=== PATIENT | female | born 1955 | race Caucasian/White ===

== ENCOUNTER 2022-10-07 11:17 | Outpatient (REF) | payer OTHER, SELFPAY ==
[2022-10-08 02:09] LABS: Abs Immature Grans 0.03 10^3/uL (0.0-0.06); Absolute Basophil Count 0.04 10^3/uL (0.0-0.2); Absolute Lymphocyte Count 1.65 10^3/uL (1.2-3.4); Absolute Monocyte Count 0.72 10^3/uL (0.1-0.8); Absolute Neutrophil Count 5.59 10^3/uL (1.2-6.7); Basophils % 0.5; Eosinophils % 1.2; HCT 44.5 % (36.0-46.0); HGB 14.4 g/dL (11.2-15.7); Immature Grans % 0.4; Lymphocytes % 20.3; MCH 28.4 pg (27.0-33.0); MCHC 32.4 % (32.0-36.0); MCV 88 fL (80-95); MPV 11.2 fL (8.0-11.0); Monocytes % 8.9; Neutrophils % 68.7; Platelet Count 334 10^3/uL (130-400); RBC 5.07 10^6/uL (3.93-5.22); RDW 13.7 % (11.7-14.6); RDW-SD 43.8 fL; WBC 8.13 10^3/uL (4.4-10.8)
[2022-10-08 11:32] LABS: ALT 30 U/L (14-59); AST 22 U/L (15-37); Albumin 4.3 g/dL (3.4-5.0); Alkaline Phosphatase 97 U/L (46-116); Anion Gap 7.8 mmol/L (3-11); BUN 10 mg/dL (7-18); Bilirubin, Total 0.4 mg/dL (0.2-1.0); CO2 28.2 mmol/L (21.0-32.0); CREATININE 0.7 mg/dL (0.55-1.02); Calculated LDL 165 mg/dL (<100); Chloride 102 mmol/L (98-107); Cholesterol 266 mg/dL (<200); Estimated GFR 93.56 (mL/min/1.73m2); Glucose 114 mg/dL (74-106); HDL Cholesterol 74 mg/dL (40-60); Potassium 4.4 mmol/L (3.5-5.1); Sodium 138 mmol/L (136-145); TSH (W/Ref FT4) 2.13 uIU/mL (0.36-3.74); Total Protein 7.4 g/dL (6.4-8.2); Triglyceride 138 mg/dL (<150)
[2022-10-08 12:03] LABS: Calcium 9.7 mg/dL (8.5-10.1)
== END 2022-10-07 11:18 | disposition home or self-care (01) ==
LOC: NCHCN 11:17
PROVIDERS: Visit Provider Nurse Practitioner Family
DX: R53.83 Other fatigue (principal); R06.09 Other forms of dyspnea; R01.1 Cardiac murmur, unspecified; R79.89 Other specified abnormal findings of blood chemistry
CPT/HCPCS: 80053; 80061; 84443; 85025

== ENCOUNTER 2022-11-26 01:17 | Outpatient (CLI) | payer OTHER, SELFPAY ==
--- NOTE | 2022-11-26 07:30 | DI.US_ITS ---
APPROVED REPORT EXAM: Comprehensive 2D, Doppler, and color-flow Echocardiogram Other Information Study Quality: Adequate Conclusion Normal left ventricular wall thickness and chamber size. Ejection fraction is 65%. Wall motion is n ormal Normal right ventricular size and systolic function The left atrium is mildly dilated. Right atrial size is normal Aortic valve is sclerotic. There is mild to moderate aortic stenosis. Peak gradient is 41, mean is 25. Calculated aortic valve area is 1.16 cm??. There is trivial aortic regurgitation Mitral annular calcification with trace mitral regurgitation Normal tricuspid valve with trace regurgitation. Estimated right ventricular systolic pressure is 26 mmHg Wall motion Left Ventricle The left ventricle is normal size. The left ventricular systolic function is normal. The left ventric ular ejection fraction is within the normal range. There is normal left ventricular wall thickness. T here is normal LV segmental wall motion. There is no ventricular septal defect visualized. LVEF is 65 %. Right Ventricle The right ventricle is normal size. Right ventricular systolic function is grossly normal. The RVSP i s 25.7 mmHg. Atria Left atrium is mildly dilated. The right atrium size is normal. The interatrial septum is intact with no evidence for an atrial septal defect. Aortic Valve Aortic valve is calcified. Aortic valve is probably trileaflet. Mild to moderate aortic stenosis. Pea k aortic valve gradient is 41.0 mmHg. Highest mean aortic valve gradient is 24.9 mmHg. Calculated MANJINDER by the continuity equation is 1.16 cm2. Trivial aortic regurgitation. Mitral Valve Mild mitral annular calcification. No evidence of mitral valve stenosis. Trace mitral regurgitation. Tricuspid Valve The tricuspid valve is normal in structure. There is no tricuspid valve stenosis. Trace tricuspid reg urgitation. Pulmonic Valve The pulmonary valve is normal in structure. There is no pulmonic valvular stenosis. There is no pulmo francisco valvular regurgitation. Great Vessels The aortic root is normal in size. The ascending aorta is normal in size. Aortic arch is not well vis ualized. IVC is normal in size and collapses >50% with inspiration. Pericardium There is no pericardial effusion. 2D Dimensions IVSD d PLAX 0.66 cm F: 0.6-1.0 LV Vol A2C d MOD 73.8 mL LVPW d PLAX 0.66 cm F: 0.6 - 1.0 LV Vol A4C d MOD 90.8 mL LVID d PLAX 3.33 cm F: 3.8 - 5.2 LA vol/ BSA A4C s A-L 37.1 mL/m2 LVDs 2.10 cm F: 2.2 - 3.5 LA Area A4C s MOD 19.98 cm2 Ao Root d 2.93 cm F: 2.7 - 3.3 LV EF A4C MOD 66.3 % Ao Asc Diam d 2.91 cm F: 2.3 - 3.1 LV EF A2C MOD 64.5 % LV EF Teichholz 66.4 % LV EF Biplane MOD 66.1 % LVEF (Harris's) 66.14 % F: 54 - 74 SV 55.62 mL LV Volume 66.82 mL F: 46 - 106 SV Index 32.76 mL/m2 LV Volume Index 39.30 mL/m2 F: 29 - 61 LV Vol Biplane MOD 84.1 mL FS 35.65 % M-Mode TAPSE 1.71 cm (M/F) >1.7 LV Diastology MV E' medial 0.131 (>0.07 m/s) E/A Ratio 0.7 LV E/e MED 6.25 (<14) MV E Vmax 0.82 (0.4-1.3 m/s) MV E' lateral 0.085 (>0.1 m/s) MV A Vmax 1.25 (0.4-1.3 m/s) LV E/e LAT 9.65 (<14) MV E/A Ratio 0.65 MV E/E' medial 6.27 MV E/E' lateral 9.66 Aortic Valve LVOT Area 3.30 cm2 AoV Area Vmax 1.16 cm2 LVOT Vmax 1.12 m/s AoV Area/ BSA (Vmax) 0.68 cm2/m2 LVOT Mean Phani. 0.68 m/s MANJINDER Mean Phani. 0.94 cm2 LVOT Peak Grad 5.1 mmHg MANJINDER Mean Phani. Index 0.56 cm2/m2 LVOT Mean Grad 2.3 mmHg LVOT VTI 0.235 m LVOT Diam s 2.00 cm AoV Vmax 3.20 m/s Velocity Ratio 0.35 AoV Mean Phani. 2.39 m/s AoV Peak Grad 41.0 mmHg LVOT SV 77.47 mL AoV Mean Grad 24.9 mmHg AoV VTI 0.737 m AoV Area VTI 1.05 cm2 AoV Area/ BSA (VTI) 0.62 cm/m2 Mitral Valve MV DT 223 (160-240 msec) MV PHT 65 msec MV Area PHT 3.41 cm2 Pulmonary Valve PV Vmax 1.03 (0.5-1.5 m/s) RVOT Peak Gr. 1.63 mmHg PV Peak Grad 4.2 mmHg RVOT Mean Gr. 0.95 mmHg PV Mean Grad 2.0 mmHg RVOT VTI 0.131 m PV VTI 0.182 m RVOT Vmax 0.64 m/s Tricuspid Valve TR Peak Grad 22.7 mmHg TR Vmax 2.38 m/s RA Pressure 3.00 mmHg RVSP (TR) 25.7 mmHg
== END 2022-11-26 01:37 ==
LOC: DI 01:17
PROVIDERS: Visit Provider Nurse Practitioner Family
DX: R01.1 Cardiac murmur, unspecified (principal)
CPT/HCPCS: 93306

== ENCOUNTER 2023-01-01 12:56 | Outpatient (CLI) | payer OTHER, SELFPAY ==
--- NOTE | 2023-01-01 12:45 | RT.EKG_ITS ---
APPROVED REPORT Exam: Resting ECG Reason for Exam: cardiac evaluation Patient Location: O HR:80 bpm ECG Measurements Heart Rate 80 AXIS ID 179 P 49 QRSd 95 QRS -9 QT 394 T 6 QTc 455 Conclusion Sinus rhythm...normal P axis, V-rate 50- 99 Normal Electrocardiogram
== END 2023-01-01 12:57 | disposition home or self-care (01) ==
LOC: DI.CARD 12:57
PROVIDERS: PCP Nurse Practitioner Family; Visit Provider Internal Medicine Cardiovascular Disease
DX: R01.1 Cardiac murmur, unspecified (principal); R06.02 Shortness of breath
CPT/HCPCS: 93010

== ENCOUNTER → 2023-01-01 13:42 | Outpatient (BNVA) | payer OTHER, SELFPAY | PROVIDERS: PCP Nurse Practitioner Family; Referring Provider Nurse Practitioner Family; Visit Provider Internal Medicine Cardiovascular Disease | DX: I35.0 Nonrheumatic aortic (valve) stenosis (principal); E78.5 Hyperlipidemia, unspecified | CPT/HCPCS: 93005; 99203 ==

== ENCOUNTER 2023-01-06 10:49 | Outpatient (REF) | payer OTHER, SELFPAY ==
[2023-01-06 19:11] LABS: ALT 36 U/L (14-59); AST 31 U/L (15-37); Albumin 4.1 g/dL (3.4-5.0); Alkaline Phosphatase 93 U/L (46-116); Anion Gap 6.8 mmol/L (3-11); BUN 12 mg/dL (7-18); Bilirubin, Total 0.9 mg/dL (0.2-1.0); CO2 29.2 mmol/L (21.0-32.0); CREATININE 0.7 mg/dL (0.55-1.02); Calcium 9.6 mg/dL (8.5-10.1); Calculated LDL 76 mg/dL (<100); Chloride 106 mmol/L (98-107); Cholesterol 165 mg/dL (<200); Estimated GFR 93.56 (mL/min/1.73m2); Glucose 140 mg/dL (74-106); HDL Cholesterol 71 mg/dL (40-60); Potassium 4.5 mmol/L (3.5-5.1); Sodium 142 mmol/L (136-145); Total Protein 7.6 g/dL (6.4-8.2); Triglyceride 91 mg/dL (<150)
== END 2023-01-06 10:50 | disposition home or self-care (01) ==
LOC: NCHCN 10:49
PROVIDERS: PCP Nurse Practitioner Family; Visit Provider Nurse Practitioner Family
DX: E78.5 Hyperlipidemia, unspecified; R01.1 Cardiac murmur, unspecified; R53.83 Other fatigue
CPT/HCPCS: 80053; 80061

== ENCOUNTER 2023-05-28 16:23 | Outpatient (REF) | payer OTHER, SELFPAY ==
[2023-05-28 19:34] LABS: ALT 35 U/L (14-59); AST 29 U/L (15-37); Alkaline Phosphatase 104 U/L (46-116); Anion Gap 11.1 mmol/L (3-11); BUN 11 mg/dL (7-18); Bilirubin, Total 0.7 mg/dL (0.2-1.0); CO2 25.9 mmol/L (21.0-32.0); CREATININE 0.8 mg/dL (0.55-1.02); Calcium 9.7 mg/dL (8.5-10.1); Calculated LDL 58 mg/dL (<100); Chloride 102 mmol/L (98-107); Cholesterol 151 mg/dL (<200); Estimated GFR 79.71 (mL/min/1.73m2); Glucose 259 mg/dL (74-106); HDL Cholesterol 65 mg/dL (40-60); Potassium 4.3 mmol/L (3.5-5.1); Sodium 139 mmol/L (136-145); Total Protein 7.2 g/dL (6.4-8.2); Triglyceride 140 mg/dL (<150)
== END 2023-05-28 16:24 | disposition home or self-care (01) ==
LOC: NCHCN 16:23
PROVIDERS: PCP Nurse Practitioner Family; Visit Provider Nurse Practitioner Family
DX: I10 Essential (primary) hypertension (principal); E78.5 Hyperlipidemia, unspecified
CPT/HCPCS: 80053; 80061

== ENCOUNTER 2023-06-03 13:09 | Outpatient (REF) | payer OTHER, SELFPAY ==
[2023-06-03 14:38] LABS: Hemoglobin A1C 6.9 % (<5.7)
== END 2023-06-03 13:10 | disposition home or self-care (01) ==
LOC: NCHCN 13:09
PROVIDERS: PCP Nurse Practitioner Family; Visit Provider Nurse Practitioner Family
DX: R73.09 Other abnormal glucose (principal)
CPT/HCPCS: 83036

== ENCOUNTER → 2023-06-15 02:20 | Outpatient (CLI) | payer OTHER, SELFPAY ==
--- NOTE | 2023-06-15 | DI.US_ITS ---
APPROVED REPORT EXAM: Stress Echocardiogram Stress Nurse: Darcie Garcia RN Ordering Provider: CARLOS CHERY, Contact Number: [phone] HR: 88 bpm BP: 150/84 mmHg Rhythm: NSR ICD: Other chest pain R07.89 Indications: Chest tightness, elevated blood pressure. Medical History Medical History: Aortic stenosis (mild-moderate), murmur, HLD Medications: Atorvastatin, metformin, lisinopril Allergies: NKA Cardiac Risk Factors: Family hx, HTN, HLD, CVD, diabetes, former smoker Previous Cardiac Procedures: None Pretest Chest Pain Characteristics: None Exercise History: Sedentary Physical Disabilities: None Stress Test Details Test: Exercise stress testing was performed using a Justyn protocol. Rest Stress HR Resting HR Supine: 88 bpm Max Heart Rate (APMHR): 151 bpm Resting HR Standin bpm Target HR (85% APMHR): 128 bpm Max HR Achieved: 150 bpm % of APMHR: 99 Recovery HR: 93 bpm HR response to stress: Normal HR response to stress BP Resting BP Supine: 150/84 mmHg Resting BP Standin/80 mmHg Max BP: 158/78 mmHg Recovery BP: 108/64 mmHg BP response to stress: Normal blood pressure response to stress. ECG Resting ECG: Sinus Rhythm Ectopy: None Stress ECG: Sinus Tachycardia ST Change: No significant ST segment changes noted Arrhythmia: None Recovery ECG: Sinus Rhythm Recovery ST Change: No significant ST segment changes noted Recovery Arrhythmia: None Clinical Reason for Termination: Target HR Achieved Stress Symptoms: SOB Exercise duration: 05 min58 sec Highest Stage Reached: Stage 2: 2.5 mph at 12% grade. Exercise capacity: 7.05 METs Angina Score: None Prasad Treadmill Score: 5.0 Rate Pressure Product: [id number] Stress ECG Conclusion 1. Electrocardiogram showed poor R wave progression 2. Patient exercised on the Justyn protocol and completed a workload of 7.05 METS limited by dyspnea 3. Normal heart rate and blood pressure response to exercise. The patient achieved 99% of predicted heart rate for age 4. There was no electrocardiographic evidence of myocardial ischemia 5. There were no significant dysrhythmias 6. There was no echocardiographic evidence of myocardial ischemia. Ejection fraction alexia from 65% t o greater than 75% with increased contractility of all segments Prasad Treadmill Score is 5.0 which is Low risk. Stress Test Summary STAGE Time (mins) Speed (mph) Grade (%) HR BP SYMPTOMS METS Supine 88 150/84 Standing 94 134/80 1 3 1.7 10 146 158/78 4.6 2 6 2.5 12 150 Moderate SOB 7 1 min recovery 105 142/64 Mild SOB 3 min recovery 96 118/68 6 min recovery 93 108/64 SOB resolved Echo Findings The Pre-Stress Echocardiogram showed normal left ventricular contractility with an estimated Ejection Fraction of about 65%. No resting wall motion abnormalities The Peak-Stress Echocardiogram showed normal left ventricular contractility with an estimated Ejectio n Fraction of about 75%. All chi demonstrated increased contractility Conclusion Electrocardiogram showed poor R wave progression Patient exercised on the Justyn protocol and completed a workload of 7.05 METS limited by dyspnea Normal heart rate and blood pressure response to exercise. The patient achieved 99% of predicted hea rt rate for age There was no electrocardiographic evidence of myocardial ischemia There were no significant dysrhythmias There was no echocardiographic evidence of myocardial ischemia. Ejection fraction alexia from 65% to g reater than 75% with increased contractility of all segments Plain Prasad Treadmill Score is 5.0 which is Low risk.
--- NOTE | 2023-06-15 08:08 | DI.MAMMO_ITS ---
Exam(s) MAMMO SCREENING EXAM: MAMMO SCREENING CLINICAL HISTORY: SCREENING FOR BREAST CANCER Z12.39. TECHNIQUE: Bilateral full field digital CC and MLO mammographic images were obtained with 3D tomosyn thesis and utilizing computer aided detection (CAD). COMPARISON: None. Apparently there has been prior mammography many years ago. These are apparently not obtainable. FINDINGS: There are benign-appearing nodular densities in both breast toward the upper outer quadrants which ar e probably benign intramammary lymph nodes. There are no spiculated masses. There are few benign mi microfiche duplicator and macro calcifications noted in the breasts. There is also a small presently benign-appearing microcalcification group in the left breast. There is no significant architectural distortion nor skin thickening-retraction. IMPRESSION: Benign-appearing bilateral findings. Given that there are no previous for comparison recommend repea t mammogram in 6 months. BI-RADS Category 3 - 6 month - Probably Benign Finding: Recommend follow-up mammography in 6 months Breast Density - Category B - Scattered areas of fibroglandular density Breast density Category C or D implies that the patient has dense breast tissue. Dense breast tissue can make it harder to find cancer on a mammogram. Dense breast tissue is also associated with an incr eased risk of breast cancer. This information about the result of the mammogram report was provided to the patient to raise their awareness. Use this report when you speak with the patient about their risks for breast cancer, which includes their family history. At that time, you may recommend additional screening tests (Ultrasoun d or MRI) as these tests may add significant information. A negative radiographic report should not delay biopsy if a dominant or clinically suspicious mass is present. Up to ten percent of cancers are not identified on mammography. A negative report may reinforce clinical impression. Adenosis and dense breasts may obscure an underlying neoplasm. False positive reports average 6 to 10%. Patient will receive a letter notifying them of these results.
== END ==
PROVIDERS: PCP Nurse Practitioner Family; Visit Provider Nurse Practitioner Family
DX: Z12.31 Encounter for screening mammogram for malignant neoplasm of breast (principal)
CPT/HCPCS: 77063; 77067; 93306; 93350; 93017

== ENCOUNTER 2023-06-21 04:25 | Outpatient (CLI) | payer OTHER, SELFPAY ==
[2023-06-21] MEDS: Levalbuterol HFA 15 GM INH 4 PUFF IH (16:13)
[2023-06-21] MEDS: Inhaler, Assist Device 1 EACH MC (16:14)
--- NOTE | 2023-06-22 09:30 | W.PFT ---
Date of service: 06/21/23 Time of Service: 14:45 Pulmonary Function Test Result Indications: Dyspnea on exertion Interpretation Spirometry: There is no airflow limitation. There is no bronchodilator response. Lung Volumes: Normal lung volumes Diffusion Capacity: Normal diffusion Airway Pressure: Normal airways resistance Impression Normal pulmonary function testing Clinical Correlation therefore is recommended.
== END 2023-06-21 04:26 | disposition home or self-care (01) ==
LOC: RT 04:25
PROVIDERS: PCP Nurse Practitioner Family; Visit Provider Nurse Practitioner Family
DX: Z12.31 Encounter for screening mammogram for malignant neoplasm of breast (principal); R92.8 Other abnormal and inconclusive findings on diagnostic imaging of breast
CPT/HCPCS: 94060; 94726; 94729

== ENCOUNTER 2023-08-26 12:56 | Outpatient (REF) | payer OTHER, SELFPAY ==
[2023-08-26 19:09] LABS: Hemoglobin A1C 6.1 % (<5.7)
== END 2023-08-26 12:57 | disposition home or self-care (01) ==
LOC: NCHCN 12:56
PROVIDERS: PCP Nurse Practitioner Family; Visit Provider Nurse Practitioner Family
DX: E11.9 Type 2 diabetes mellitus without complications (principal)
CPT/HCPCS: 83036

== ENCOUNTER → 2023-12-08 03:46 | Outpatient (CLI) | payer OTHER, SELFPAY ==
--- NOTE | 2023-12-08 | DI.MAMMO_ITS ---
Exam(s) MAMMO DIAGNOSTIC BI EXAM: MAMMO DIAGNOSTIC BI CLINICAL HISTORY: R92.8 ABN /inconclusive findings on DI of breast. TECHNIQUE: Final CC and MLO mammographic images were obtained with 3D tomosynthesis technique and ut ilizing computer aided detection (CAD). COMPARISON: Prior mammogram of 06/07/2023 was reviewed. Her prior mammograms were many years ago an d apparently not obtainable. FINDINGS: The previously described benign-appearing nodular densities in both breasts in the upper outer quadra nts are unchanged from the mammogram of May 2023. Further evidence that they are probably benig n intramammary lymph nodes. No new spiculated masses nor malignant-appearing microcalcification groups in either breast. Small b enign-appearing microcalcification group in the left breast is also unchanged. No new architectural distortion or skin thickening-traction. IMPRESSION: Benign-appearing findings. No radiographic evidence of malignancy. Appropriate follow-up is to keep this patient on a yearly mammogram schedule. The patient was informed of the findings and follow-up recommendations prior to leaving the [facility]. BI-RADS Category 2 - Benign Findings Breast Density - Category B - Scattered areas of fibroglandular density Breast density Category C or D implies that the patient has dense breast tissue. Dense breast tissue can make it harder to find cancer on a mammogram. Dense breast tissue is also associated with an incr eased risk of breast cancer. This information about the result of the mammogram report was provided to the patient to raise their awareness. Use this report when you speak with the patient about their risks for breast cancer, which includes their family history. At that time, you may recommend additional screening tests (Ultrasoun d or MRI) as these tests may add significant information. A negative radiographic report should not delay biopsy if a dominant or clinically suspicious mass is present. Up to ten percent of cancers are not identified on mammography. A negative report may reinforce clinical impression. Adenosis and dense breasts may obscure an underlying neoplasm. False positive reports average 6 to 10%. Patient will receive a letter notifying them of these results.
== END ==
PROVIDERS: PCP Nurse Practitioner Family; Visit Provider Nurse Practitioner Family
DX: Z12.31 Encounter for screening mammogram for malignant neoplasm of breast (principal); R92.8 Other abnormal and inconclusive findings on diagnostic imaging of breast
CPT/HCPCS: 77062; 77066; G0279

== ENCOUNTER → 2024-01-12 00:45 | Outpatient (CLI) | payer OTHER, SELFPAY ==
--- NOTE | 2024-01-12 08:33 | DI.US_ITS ---
APPROVED REPORT EXAM: Comprehensive 2D, Doppler, and color-flow Echocardiogram Patient Location: Out-Patient Clothing Sales Assistant: Nohemi Ford RDCS (AE) Indications: Aortic stenosis Other Information Study Quality: Adequate Conclusion Normal left ventricular wall thickness and chamber size. Ejection fraction is 60 to 65%. Wall motio n is normal Normal right ventricular size and function Mildly dilated left atrium. Normal right atrial size Aortic valve is calcified. There is moderate to severe aortic stenosis. Peak gradient is 58, mean 3 8 mmHg with a calculated aortic valve area of 0.9 cm??. There is no aortic regurgitation Mitral annular calcification, mild mitral regurgitation Wall motion Left Ventricle The left ventricle is normal size. The left ventricular systolic function is normal. The left ventric ular ejection fraction is within the normal range. There is normal left ventricular wall thickness. T here is normal LV segmental wall motion. There is no ventricular septal defect visualized. LVEF is 63 %. Right Ventricle The right ventricle is normal size. The right ventricular systolic function is normal. Atria Left atrium is mildly dilated. The right atrium size is normal. The interatrial septum is intact with no evidence for an atrial septal defect. Aortic Valve Aortic valve is calcified. Aortic valve is trileaflet. Moderate to severe aortic stenosis. Highest pe ak aortic valve gradient is 56.84mmHg. Highest mean aortic valve gradient is 37.78.mmHg. Calculated A VA by the continuity equation is .9cm2 No aortic regurgitation is present. Mitral Valve Mild mitral annular calcification. No evidence of mitral valve stenosis. Mild mitral regurgitation. Tricuspid Valve The tricuspid valve is normal in structure. There is no tricuspid valve stenosis. Trace tricuspid reg urgitation. Unable to assess PA pressure. Pulmonic Valve The pulmonary valve is normal in structure. There is no pulmonic valvular stenosis. Trace pulmonic re gurgitation. Great Vessels The aortic root is normal in size. The ascending aorta is normal Aortic arch is normal in caliber. IV C is normal in size and collapses >50% with inspiration. Pericardium There is no pericardial effusion. 2D Dimensions IVSD d PLAX 1.01 cm F: 0.6-1.0 Ao Root d 3.03 cm F: 2.7 - 3.3 LVPW d PLAX 1.04 cm F: 0.6 - 1.0 Ao Asc Diam d 3.32 cm F: 2.3 - 3.1 LVID d PLAX 4.13 cm F: 3.8 - 5.2 LVDs 2.76 cm F: 2.2 - 3.5 LV EF Teichholz 62.4 % FS 33.31 % LV EDV (Teich) 75.7 mL LV ESV (Teich) 28.5 mL M-Mode TAPSE 2.25 cm (M/F) >1.7 Auto EF LV EDV A4C 78.5 mL LV EDV A2C 89.8 mL LV EDV BP 85.0 mL LV ESV A4C 30.1 mL LV ESV A2C 34.0 mL LV ESV BP 31.8 mL LVEF(%) A4C 61.7 % LVEF(%) A2C 62.2 % LVEF(%) BP 62.5 % LV SV A4C 48.5 ml LV SV A2C 55.8 ml LV SV BP 53.1 ml LV CO A4C 3.4 L/min LV CO A2C 4.2 L/min LV CO BP 3.8 L/min HR A4C 69.77 BPM HR A2C 75.48 BPM LV EDV Index (BP) LA Volume LA Length A4C 5.6 cm LA Length A2C 5.3 cm LA Area A4C s 19.56 cm2 LA Area A2C s 20.09 cm2 LA Vol A4C A-L 58.41 mL LA Vol A2C A-L 65.00 mL LA Vol Biplane A-L 63.3 mL LA Vol/BSA A4C A-L LA Vol/BSA A2C A-L LA Vol/BSA BP A-L 38.1 mL/m2 LA Vol A4C MOD 55.0 mL LA Vol A2C MOD 60.3 mL LA Vol BP MOD 59.1 mL RA Volume RA Area A4C 14.4 cm2 RA ESV A4C (A-L) 31.1mL RA Vol/BSA A4C A-L RA Length A4C 5.7 cm RA ESV A4C (MOD) 28.9mL LV Diastology MV E' medial 0.045 (>0.07 m/s) MV E Vmax 0.92 (0.4-1.3 m/s) MV E/E' MED 20.61 (<14) MV A Vmax 1.40 (0.4-1.3 m/s) MV E' lateral 0.054 (>0.1 m/s) E/A Ratio 0.7 MV E/E' LAT 17.17 (<14) MV E' Average 0.049 m/s MV E/E'(average) 18.73 Aortic Valve AoV Vmax 3.77 m/s LVOT Vmax 1.11 m/s AoV Peak Grad 56.8 mmHg LVOT Peak Grad 4.9 mmHg AoV Area (Vmax) 0.91 cm2 LVOT VTI 0.273 m AoV VTI 0.978 m LVOT Mean Grad 2.6 mmHg AoV Mean Phani. 2.96 m/s LVOT SV 83.91 mL AoV Mean Grad 37.8 mmHg LVOT Diam s 1.95 cm AoV Area (VTI) 0.86 cm2 Velocity Ratio 0.29 Mitral Valve MV DT 323 (160-240 msec) MV Vmax TIPS 1.37 m/s MV Mean Grad 3.1 (<2mmHg) MV VTI 0.372 m Pulmonary Valve PV Vmax 1.19 (0.5-1.5 m/s) RVOT Vmax 0.67 m/s PV Peak Grad 5.7 mmHg RVOT Peak Gr. 1.8 mmHg PV Mean Phani 0.79 m/s RVOT VTI 0.155 m PV Mean Grad 2.8 mmHg RVOT Mean Gr. 1.0 mmHg Tricuspid Valve TV S' 0.18 m/s
== END ==
PROVIDERS: Visit Provider Internal Medicine Cardiovascular Disease
DX: I35.0 Nonrheumatic aortic (valve) stenosis (principal)
CPT/HCPCS: 93306

== ENCOUNTER → 2024-02-08 09:27 | Outpatient (BNVA) | payer OTHER, SELFPAY | PROVIDERS: Visit Provider Internal Medicine Cardiovascular Disease ==

== ENCOUNTER 2024-02-08 11:58 | Outpatient (CLI) | payer OTHER, SELFPAY ==
[2024-02-08 11:33] LABS: HCT 42.9 % (36.0-46.0); HGB 13.8 g/dL (11.2-15.7); MCH 28.7 pg (27.0-33.0); MCHC 32.2 % (32.0-36.0); MCV 89 fL (80-95); MPV 10.9 fL (8.0-11.0); Platelet Count 279 10^3/uL (130-400); RBC 4.81 10^6/uL (3.93-5.22); RDW-SD 42.9 fL; WBC 7.37 10^3/uL (4.4-10.8)
[2024-02-08 11:41] LABS: Anion Gap 8.8 mmol/L (3-11); BUN 11 mg/dL (7-18); CO2 29.2 mmol/L (21.0-32.0); CREATININE 0.6 mg/dL (0.55-1.02); Calcium 9.6 mg/dL (8.5-10.1); Chloride 104 mmol/L (98-107); Glucose 115 mg/dL (74-106); INR 1.1 (0.9-1.1); PTT Activated 28.1 sec (23.6-32.8); Potassium 4.2 mmol/L (3.5-5.1); Prothrombin Time 11.4 sec (9.1-11.1); Sodium 142 mmol/L (136-145)
== END 2024-02-08 11:59 | disposition home or self-care (01) ==
LOC: LBO 11:58
PROVIDERS: Visit Provider Internal Medicine Cardiovascular Disease
DX: I35.0 Nonrheumatic aortic (valve) stenosis (principal)
CPT/HCPCS: 36415; 80048; 85027; 99214; 85610; 85730

== ENCOUNTER 2024-04-07 10:48 | Outpatient (RCR) | payer OTHER, SELFPAY ==
--- NOTE | 2024-04-07 11:00 | RT.EKG_ITS ---
APPROVED REPORT Exam: Resting ECG Reason for Exam: Cardiac Rehab baseline Patient Location: O HR:65 bpm ECG Measurements Heart Rate 65 AXIS DC 171 P 52 QRSd 93 QRS 14 QT 437 T 43 QTc 455 Conclusion Sinus rhythm...normal P axis, V-rate 50- 99 Baseline wander in lead(s) V2 Nondiagnostic anterior ST-T abnormalities
== END 2024-04-17 23:59 | disposition home or self-care (01) ==
LOC: CR 10:48
PROVIDERS: PCP Nurse Practitioner Family; Visit Provider Internal Medicine Cardiovascular Disease
DX: Z95.4 Presence of other heart-valve replacement (principal); Z51.89 Encounter for other specified aftercare
CPT/HCPCS: S9472

== ENCOUNTER 2024-05-17 09:00 | Outpatient (RCR) | payer OTHER, SELFPAY | END 2024-05-18 23:59 | disposition home or self-care (01) | LOC: CR 09:00 | PROVIDERS: PCP Nurse Practitioner Family; Visit Provider Internal Medicine Cardiovascular Disease | DX: Z95.4 Presence of other heart-valve replacement (principal); Z51.89 Encounter for other specified aftercare; I35.0 Nonrheumatic aortic (valve) stenosis | CPT/HCPCS: S9472 ==

== ENCOUNTER → 2024-06-06 10:59 | Outpatient (BNVA) | payer OTHER, SELFPAY | PROVIDERS: PCP Nurse Practitioner Family; Referring Provider Nurse Practitioner Family; Visit Provider Internal Medicine Cardiovascular Disease | DX: Z95.2 Presence of prosthetic heart valve (principal) | CPT/HCPCS: 99213 ==

== ENCOUNTER 2024-06-14 09:44 | Outpatient (RCR) | payer OTHER, SELFPAY | END 2024-06-17 23:59 | disposition home or self-care (01) | LOC: CR 09:44 | PROVIDERS: PCP Nurse Practitioner Family; Visit Provider Internal Medicine Cardiovascular Disease | DX: I35.0 Nonrheumatic aortic (valve) stenosis (principal); Z95.4 Presence of other heart-valve replacement; Z51.89 Encounter for other specified aftercare | CPT/HCPCS: S9472 ==

== ENCOUNTER 2024-07-09 10:43 | Emergency (ER) | payer OTHER, SELFPAY ==
[2024-07-09 10:46] VITALS: BP 177/91; PULSE 70; RESP 18; TEMP 36.4; O2SAT 98
[2024-07-09 10:50] VITALS: BP 177/91; PULSE 70; RESP 18; TEMP 36.4; O2SAT 98
[2024-07-09] MEDS: Cephalexin 500 MG CAP PO (11:27)
--- NOTE | 2024-07-09 11:54 | W.ED.GENAD ---
Discharge Plan Disposition Patient Disposition: Home Condition: Stable Discharge Details Clinical Impression: Superficial dehiscence of wound Primary Care Provider: Ofelia Lux ED Provider: Taz Hollingsworth Home Meds and New Rx's Prescriptions: New cephalexin 500 mg capsule 500 mg PO QID Qty: 24 0RF Continued metoprolol tartrate 25 mg tablet 12.5 mg PO BID aspirin [Adult Aspirin Regimen] 81 mg tablet,delayed release (DR/EC) 81 mg PO DAILY metformin 500 mg tablet 500 mg PO DAILY atorvastatin 20 mg tablet 20 mg PO DAILY Discharge Instructions Additional Instructions: As discussed, monitor your wound for any signs of infection. Take photographs of the wound daily. Apply topical antibiotic (Neosporin) ointment and take oral antibiotics as prescribed. Please contact your primary care physician to arrange follow-up. Please follow-up with your cardiothoracic surgeon. Return to the ER immediately for any worsening or new concerning symptoms including worsening rash, pain, bleeding. Referrals: Ofelia Lux [Primary Care Provider] - [facility] General Mode of arrival: ambulatory. Date/Time Provider Initiated Documentation: 07/09/24 10:48. Limitations to Documentation: no limitations. Information obtained by: patient. HPI Narrative: 68-year-old female presents with concern for drainage from wound. Patient notes she had aortic valve replacement 03/27/2024. She has been doing well postoperatively. She states she noticed a lump near the top of her scar approximately 2 weeks ago. Yesterday she noticed a pinhole sized opening in the area with some small discharge. Today the opening was larger and with some purulent and bloody discharge. She has no pain at the site. She states mild localized redness in the area that may be slightly more pronounced. Related Data Home Medications ?Medication ?Instructions ?Recorded ?Confirmed atorvastatin 20 mg tablet 20 mg PO DAILY 12/08/22 07/09/24 metformin 500 mg tablet 500 mg PO DAILY 02/08/24 07/09/24 aspirin 81 mg tablet,delayed 81 mg PO DAILY 06/06/24 06/06/24 release (Adult Aspirin Regimen) metoprolol tartrate 25 mg tablet 12.5 mg PO BID 06/06/24 07/09/24 cephalexin 500 mg capsule 500 mg PO QID #24 caps 07/09/24 Previous Rx's ?Medication ?Instructions ?Recorded cephalexin 500 mg capsule 500 mg PO QID #24 caps 07/09/24 Allergies Allergy/AdvReac Type Severity Reaction Status Date / Time No Known Allergies Allergy Verified 07/09/24 10:49 General Stated Complaint: GenMedical KYM: 4 Review of Systems Constitutional Constitutional: Denies fever(s) Integumentary/Breasts Skin/Breast: Reports as per HPI Exam Cardio Rate: regular rate Skin Wounds: wounds noted (0.5 cm dehiscence superior sternal wound, no discharge, mild adjac redness) Course Vital Signs Vital signs: Vital Signs Temperature 36.4 C 07/09/24 10:46 Pulse 70 07/09/24 10:46 Respiratory Rate 18 07/09/24 10:46 Blood Pressure 177/91 H 07/09/24 10:46 Pulse Oximetry 98 07/09/24 10:46 Temperature 36.4 C 07/09/24 10:50 Pulse 70 07/09/24 10:50 Respiratory Rate 18 07/09/24 10:50 Blood Pressure 177/91 H 07/09/24 10:50 Pulse Oximetry 98 07/09/24 10:50 Medical Decision Making 68-year-old female here >3mo post open heart aortic valve repair with small area of wound dehiscence with purulent and bloody discharge prior to arrival. Suspect seroma versus small abscess -now resolving. POCUS exam was performed and there is no sign of deep space infection present. Given small area of adjacent erythema, I will treat with short course of Keflex. Initial dose provided here in the emergency department. Tetanus up-to-date. Usual and customary discharge instructions were reviewed with the patient. She was instructed to follow-up with her cardiothoracic surgeon. Quality:SDOH Health Related Social Needs: No Data to Display PFSH All Active Problems Superficial dehiscence of wound (Acute) S/P AVR (aortic valve replacement) (Acute) 03/27/24 [facility] [place] Hyperlipidemia (Acute) Aortic stenosis (Chronic) Exertional shortness of breath (Acute) Fatigue (Acute) Cardiac murmur (Acute) Acute serous otitis media of right ear (Acute) Medical History COVID-19 Ear fullness Family History Father Heart disease Cancer lung Mother Heart disease liver Cancer Social History Smoking/Tobacco Use Status: Former Tobacco Use Quit Date: 07/19/06 Smoking risk assessment performed?: Yes Alcohol Intake: current Alcohol Intake frequency: holidays/special occasions only Drug use: Never Household members: family Housing: house current occupation: retired [employer] in [employer] Pets and animals: Yes Pets and animals: cat(s), dog(s) and farm animals What is your relationship status?: Panel score (0-1 are the most socially isolated patients): 1 Do you feel safe at home: Yes Do you feel safe in your relationship?: Yes PAWSS Have you Been Recently Intoxicated or Drunk Within the Last 30 days?: No Have you Ever Experienced Previous Episodes of Alcohol Withdrawal?: No Have you ever Experienced Withdrawal Seizures?: No Have you ever Experienced Delirium Tremens(DT)s?: No Have you ever undergone Alcohol Rehabilitation Treatment (i.e, inpt ot outpatient treatment programs)?: No Have you ever Experienced Blackouts?: No Have you ever Combined Alcohol with other Downers within the last 90 days?: No Have you ever Combined Alcohol with any other Substance of Abuse during the last 90 days?: No Positive Blood Alcohol level on Presentation? [PCS.BAL]: No Evidence of Increased Autonomic Activity (i.e. HR>120, tremor, sweating, agitation, nausea)?: No Result: 0 POCUS Exam (ED) Limited Soft Tissue Exam DATE OF EXAM: 07/09/24 TIME OF EXAM: 12:26 PROVIDER THAT PERFORMED THE STUDY: Taz Hollingsworth IS THIS A REPEAT EXAM DURING THIS ENCOUNTER: No DIFFERENTIAL DIAGNOSES: location central chest/over sternum. ddx abscess vs seroma. no fluid collection on exam.
[2024-07-09 12:15] VITALS: RESP 15
== END 2024-07-09 12:15 | disposition home or self-care (01) ==
PROVIDERS: Emergency Provider Student in an Organized Health Care Education/Training Program; PCP Nurse Practitioner Family
DX: T81.31XA Disruption of external operation (surgical) wound, not elsewhere classified, initial encounter (principal); E78.5 Hyperlipidemia, unspecified; Z95.5 Presence of coronary angioplasty implant and graft; Z79.85 Long-term (current) use of injectable non-insulin antidiabetic drugs; Z87.891 Personal history of nicotine dependence
CPT/HCPCS: 76604; 99284

== ENCOUNTER 2024-07-17 09:14 | Outpatient (RCR) | payer OTHER, SELFPAY | END 2024-07-18 23:59 | disposition home or self-care (01) | LOC: CR 09:14 | PROVIDERS: PCP Nurse Practitioner Family; Visit Provider Internal Medicine Cardiovascular Disease | DX: I35.0 Nonrheumatic aortic (valve) stenosis (principal); Z95.4 Presence of other heart-valve replacement; Z51.89 Encounter for other specified aftercare | CPT/HCPCS: S9472 ==

== ENCOUNTER 2024-07-21 09:14 | Outpatient (RCR) | payer MEDICARE, SELFPAY | END 2024-08-18 23:59 | disposition home or self-care (01) | LOC: CR 09:14 | PROVIDERS: PCP Nurse Practitioner Family; Visit Provider Internal Medicine Cardiovascular Disease | DX: I35.0 Nonrheumatic aortic (valve) stenosis (principal); Z95.4 Presence of other heart-valve replacement; Z51.89 Encounter for other specified aftercare | CPT/HCPCS: S9472 ==

== ENCOUNTER 2024-09-15 13:54 | Outpatient (REF) | payer MEDICARE, SELFPAY ==
[2024-09-15 16:03] LABS: Abs Immature Grans 0.04 10^3/uL (0.0-0.06); Absolute Basophil Count 0.05 10^3/uL (0.0-0.2); Absolute Eosinophil Count 0.15 10^3/uL (0.0-0.7); Absolute Lymphocyte Count 2.14 10^3/uL (1.2-3.4); Absolute Monocyte Count 0.72 10^3/uL (0.1-0.8); Absolute Neutrophil Count 6.36 10^3/uL (1.2-6.7); Basophils % 0.5 %; Eosinophils % 1.6 %; HCT 41.7 % (36.0-46.0); HGB 13.2 g/dL (11.2-15.7); Immature Grans % 0.4 %; Lymphocytes % 22.6 %; MCH 27.7 pg (27.0-33.0); MCHC 31.7 % (32.0-36.0); MCV 88 fL (80-95); Monocytes % 7.6 %; Neutrophils % 67.3 %; Platelet Count 246 10^3/uL (130-400); RBC 4.76 10^6/uL (3.93-5.22); RDW 14.2 % (11.7-14.6); RDW-SD 45.8 fL; WBC 9.46 10^3/uL (4.4-10.8)
[2024-09-15 16:16] LABS: ALT 33 U/L (14-59); AST 25 U/L (15-37); Albumin 4.1 g/dL (3.4-5.0); Alkaline Phosphatase 93 U/L (46-116); Anion Gap 6.3 mmol/L (3-11); BUN 16 mg/dL (7-18); Bilirubin, Total 0.46 mg/dL (0.2-1.0); CO2 29.7 mmol/L (21.0-32.0); CREATININE 0.6 mg/dL (0.55-1.02); Calcium 9.7 mg/dL (8.5-10.1); Calculated LDL 62 mg/dL (<100); Chloride 106 mmol/L (98-107); Cholesterol 165 mg/dL (<200); Glucose 97 mg/dL (74-106); HDL Cholesterol 81 mg/dL (>or=50); Potassium 4.8 mmol/L (3.5-5.1); Sodium 142 mmol/L (136-145); Triglyceride 111 mg/dL (<150)
[2024-09-15 16:39] LABS: COMMENT (LAB VIEW ONLY) 72.83 mg/dL; Microalb ug/mg Crea 8.1 ug/mg Cr
== END 2024-09-15 13:55 | disposition home or self-care (01) ==
LOC: NCHCN 13:54
PROVIDERS: PCP Nurse Practitioner Family; Visit Provider Nurse Practitioner Family
DX: E11.9 Type 2 diabetes mellitus without complications (principal); I10 Essential (primary) hypertension; E78.5 Hyperlipidemia, unspecified
CPT/HCPCS: 80053; 80061; 82043; 82570; 85025

== ENCOUNTER → 2024-10-03 10:31 | Outpatient (BNVA) | payer MEDICARE, SELFPAY | PROVIDERS: PCP Nurse Practitioner Family; Visit Provider Internal Medicine Cardiovascular Disease | DX: Z95.2 Presence of prosthetic heart valve (principal) | CPT/HCPCS: 99213 ==

== ENCOUNTER 2024-11-02 00:30 | Outpatient (CLI) | payer MEDICARE, SELFPAY ==
--- NOTE | 2024-11-02 | DI.DEXA_ITS ---
Exam(s) XR DEXA BONE DENSITY W/WO SUZI EXAM: XR DEXA BONE DENSITY W/WO SUZI CLINICAL HISTORY: Screening for osteoporosis,M85.88-other specified disorders of bone density TECHNIQUE: Routine DEXA evaluation of the lumbar spine, hip, or forearm. COMPARISON: No exams were available for comparison FINDINGS: Performed on a Hologic unit. Lateral image: No compression fracture evident. Lumbar Spine total T-score: 0.2 Hip total T-score:-0.8 Independent reading at the level of the femoral neck yields T-score of -2.3 Forearm total T-score: -1.1 IMPRESSION: Bone mineral density measures in the osteopenia range. Fracture risk is moderate. Note: Any spine fracture indicates 5x risk for subsequent spine fracture and 2x risk for subsequent h ip fracture. World Health Organization criteria for BMD interpretation classify patients: Normal...... T- Score at or above -1.0 Osteopenic... T- Score between -1.0 and -2.5 Osteoporosis... T-Score at or below -2.5
== END 2024-11-02 00:50 ==
PROVIDERS: PCP Nurse Practitioner Family; Visit Provider Nurse Practitioner Family
DX: M85.88 Other specified disorders of bone density and structure, other site (principal)
CPT/HCPCS: 77080

== ENCOUNTER → 2024-11-20 14:24 | Outpatient (BNVA) | payer MEDICARE, SELFPAY | PROVIDERS: PCP Nurse Practitioner Family; Referring Provider Nurse Practitioner Family; Visit Provider Student in an Organized Health Care Education/Training Program | DX: M65.341 Trigger finger, right ring finger (principal) | CPT/HCPCS: 20550; J1010 ==

== ENCOUNTER → 2025-07-03 10:37 | Outpatient (BNVA) | payer MEDICARE, SELFPAY | PROVIDERS: PCP Student in an Organized Health Care Education/Training Program; Visit Provider Internal Medicine Cardiovascular Disease | DX: R53.83 Other fatigue (principal); Z95.2 Presence of prosthetic heart valve | CPT/HCPCS: 99213 ==

== ENCOUNTER 2025-07-05 11:11 | Outpatient (CLI) | payer MEDICARE, SELFPAY ==
[2025-07-05 15:35] LABS: Vitamin D 25 Total 37 ng/mL (30-100)
[2025-07-05 15:42] LABS: ALT 21 U/L (10-49); AST 30 U/L (<34); Albumin 4.3 g/dL (3.2-5.0); Alkaline Phosphatase 86 U/L (46-116); Anion Gap 10 mmol/L (3-11); BUN 14 mg/dL (9-23); Bilirubin, Total 0.8 mg/dL (0.2-1.2); CO2 30.0 mmol/L (20.0-31.0); Calcium 9.7 mg/dL (8.3-10.6); Chloride 103 mmol/L (98-107); Glucose 91 mg/dL (74-106); Potassium 4.7 mmol/L (3.5-5.1); Sodium 143 mmol/L (136-145); Total Protein 6.6 g/dL (5.7-8.2)
== END 2025-07-05 11:12 | disposition home or self-care (01) ==
LOC: LBO 11:11
PROVIDERS: PCP Student in an Organized Health Care Education/Training Program; Visit Provider Student in an Organized Health Care Education/Training Program
DX: E55.9 Vitamin D deficiency, unspecified (principal); I10 Essential (primary) hypertension
CPT/HCPCS: 36415; 80053; 82306

== ENCOUNTER → 2025-07-13 00:07 | Outpatient (CLI) | payer MEDICARE, SELFPAY ==
--- NOTE | 2025-07-13 10:58 | DI.MAMMO_ITS ---
Exam(s) MAMMO SCREENING EXAM: MAMMO SCREENING CLINICAL HISTORY: SCREENING MAMMO Z12.31. TECHNIQUE: Bilateral full field digital CC and MLO mammographic images were obtained with 3D tomosynthesis and utilizing computer aided detection (CAD). COMPARISON: Prior mammograms were reviewed. FINDINGS: There has been no significant change in the appearance and distribution of the fibroglandular tissue. Small benign-appearing nodules in both breasts remain unchanged. There are no new spiculated masses nor malignant appearing microcalcification groups. There is no significant architectural distortion nor skin thickening-retraction. IMPRESSION: No radiographic evidence of malignancy. BI-RADS Category 1 - Negative Breast Density - Category B - There are scattered areas of fibroglandular density. Breast density Category C or D implies that the patient has dense breast tissue. Dense breast tissue can make it harder to find cancer on a mammogram. Dense breast tissue is also associated with an increased risk of breast cancer. This information about the result of the mammogram report was provided to the patient to raise their awareness. Use this report when you speak with the patient about their risks for breast cancer, which includes their family history. At that time, you may recommend additional screening tests (Ultrasound or MRI) as these tests may add significant information. A negative radiographic report should not delay biopsy if a dominant or clinically suspicious mass is present. Up to ten percent of cancers are not identified on mammography. A negative report may reinforce clinical impression. Adenosis and dense breasts may obscure an underlying neoplasm. False positive reports average 6 to 10%. Patient will receive a letter notifying them of these results.
== END ==
LOC: DI 00:07
PROVIDERS: PCP Student in an Organized Health Care Education/Training Program; Visit Provider Student in an Organized Health Care Education/Training Program
DX: Z12.31 Encounter for screening mammogram for malignant neoplasm of breast (principal); R92.323 Mammographic fibroglandular density, bilateral breasts
CPT/HCPCS: 77063; 77067